=== PATIENT | male | born 1980 | race Caucasian/White ===

== ENCOUNTER 2024-09-25 19:41 | Emergency (ER) | payer OTHER, SELFPAY ==
[2024-09-25 19:41] VITALS: BP 172/99; PULSE 102; RESP 15; TEMP 36.6; O2SAT 99; BMI 31.8
--- NOTE | 2024-09-25 22:09 | EDS_ITS ---
HPI History of Present Illness Chief Complaint: Rash Informant: patient Narrative Narrative: Patient 44-year-old male who states that a few days ago he put on his hiking boots and went outside to take with from his wood pile and began burning wood in his fireplace. He states a few days after this he noticed that he had a red pruritic rash across his bilateral lower legs. He states other than the firewood exposure there has been no new exposures. He states no one else at home has the rash. He states he went to an urgent care and was placed on triamcinolone topical cream but despite using this has had no improvement of symptoms. He denies any fevers or chills he denies any difficulty breathing or swallowing but without any improvement after using the topical cream who presents for evaluation. PFSH PFS Medical History no medical history Home Medications ?Medication ?Instructions ?Recorded ?Last Taken ?Type prednisone 10 mg tablet 10 mg PO DAILY #48 TABLETS 0 09/25/24 Unknown Rx Allergy/AdvReac Type Severity Reaction Status Date / Time amoxicillin Allergy Mild Hives Verified 09/25/24 19:41 doxycycline Allergy Mild Hives Verified 09/25/24 19:41 Surgical History no surgical history Social History Smoking Status: Never smoker ROS ROS ED Constitutional Constitutional ED: Denies chills or fever(s) Eyes Eyes: Denies change in vision or diplopia ENT ENT ED: Denies sore throat Cardiovascular Cardiovascular: Denies chest pain Respiratory/Chest Respiratory/Chest: Denies cough or dyspnea Gastrointestinal Gastrointestinal: Denies abdominal pain, diarrhea, nausea or vomiting Genitourinary Genitourinary ED: Denies dysuria Musculoskeletal Musculoskeletal: Denies myalgias Integumentary Reports rash Neurologic Neurologic: Denies headache(s) Hematologic/Lymphatic Hematologic/Lymphatic: Denies easy bleeding or easy bruising Allergic/Immunologic Allergic/Immunologic ED: Denies mouth swelling or tongue swelling EXAM Physical Exam Const Vital Signs: 09/25/24 19:41 Temperature 97.9 F Temperature Source Temporal Pulse Rate 102 H Respiratory Rate 15 Blood Pressure 172/99 H Blood Pressure Mean 123 Pulse Ox 99 Oxygen Delivery Method Room Air Positive well nourished and well developed General Appearance ED: well developed HEENT Reports moist mucous membranes HEENT Narrative: No tongue or lip swelling no oral lesions no airway edema or compromise Eyes PERRL and EOMs intact bilaterally Neck supple Neck Narrative: No nuchal rigidity or meningeal signs noted Resp normal respiratory effort and clear to auscultation bilaterally Cardio regular rate and regular rhythm Extremity Extremity Narrative: Patient has a erythematous blanchable well-circumscribed rash along the anterior aspects of the bilateral shins that stops red around the knees. There is no involvement of the palms or soles No bony deformity or joint effusion No crepitance Compartments are soft and compressible going against compartment syndrome Neuro oriented x3, CN's II-XII intact bilaterally and no sensory deficits noted Sensorium / Orientation: alert Motor Exam: strength 5/5 throughout Psych mental status grossly normal Skin Skin Narrative: Rash to the bilateral lower legs as documented above MDM MDM MDM Narrative Medical decision making narrative: Patient arrived to the ER hypertensive otherwise with stable vitals. He reported a pruritic rash to his bilateral lower legs after moving and burning firewood. Differential diagnosis is for contact dermatitis versus folliculitis versus cellulitis versus abscess. As the rash is pruritic this would go against cellulitis or abscess and he does not have any induration or fluctuance to suggest abscess. There is no crepitance or lymphangitic streaking going against secondary infection. Based on the recent wood exposure I do feel this is most likely a inflammatory process such as contact dermatitis but it requires more potent intervention with oral steroids not topical. Therefore will be given triamcinolone injection at this time and placed on a prednisone taper. However as he does not have signs of secondary infection or airway compromise/anaphylaxis there is no need for further workup and he is otherwise safe for discharge. History & Record Review Discussion w/independent historian: Patient Discharge Plan Triage Chief Complaint: Rash ED Provider: James Rizo Dx/Rx/DC Orders Clinical Impression: Contact dermatitis, Hypertension Instructions: ED Contact Dermatitis Prescriptions: New prednisone 10 mg tablet 10 mg PO DAILY Qty: 48 0RF Rx Instructions: 6 po qd x 3 days, 4 po qd x 3 days, 2 po qd x 3 days, 1 po qd x 3 days Primary Care Provider: Bhanu Michaels Referrals: Bhanu Michaels MD [Primary Care Provider] - Activity Restrictions/Additional Instructions: I do feel your rash is more inflammatory than infectious. Use the steroid taper that was prescribed to resolve the rash. It will typically take 3 days to notice improvement. If you have difficulty breathing or swallowing or you develop a fever or have any further concerns please return to the ER for repeat evaluation. Print Language: Belgian Disposition Disposition: Home, Self Care
[2024-09-25] MEDS: Triamcinolone Acetonide 40 MG/ML Vial 80 MG IM (22:43)
[2024-09-25 23:16] VITALS: BP 150/88; PULSE 90; RESP 15; TEMP 36.6; O2SAT 99
== END 2024-09-25 23:16 | disposition home or self-care (01) ==
PROVIDERS: Emergency Provider Emergency Medicine; PCP Family Medicine; Referring Provider Emergency Medicine; Visit Provider Emergency Medicine
DX: L25.9 Unspecified contact dermatitis, unspecified cause (principal); I10 Essential (primary) hypertension
CPT/HCPCS: 96372; 99282